=== PATIENT | female | born 1945 | race Hispanic/Latino ===

== ENCOUNTER 2018-10-24 02:31 | Emergency (ER) | payer OTHER ==
[2018-10-24 03:13] LABS: BILIRUBIN,URINE MODERATE (NEGATIVE); GLUCOSE, URINE (UA) NEGATIVE (NEGATIVE); KETONES,URINE 15 mg/dL (NEGATIVE); LEUKOCYTE ESTERASE ,URINE LARGE (NEGATIVE); NITRATE,URINE POSITIVE (NEGATIVE); OCCULT BLOOD,URINE LARGE (NEGATIVE); PROTEIN,URINE >=300 mg/dL (NEGATIVE)
[2018-10-24 03:14] LABS: APPEARANCE,URINE TURBID (CLEAR); COLOR,URINE RED (YELLOW)
[2018-10-24 03:28] LABS: RBC,URINE >100 /HPF (0-1)
[2018-10-24 03:29] LABS: BACTERIA,URINE Few /HPF (None Seen); SQUAMOUS EPITHELIAL CELL,UR 0-2 /HPF (0-2)
[2018-10-24] MEDS ORDERED: SULFAMETHOX-TMP DS 800/160 TAB ONE (04:03)
[2018-10-24] MEDS ORDERED: PHENAZOPYRIDINE HCL 200 MG TABLET ONE (04:03)
[2018-10-24] MEDS ORDERED: DICYCLOMINE HCL 20 MG TAB ONE (04:04)
== END 2018-10-24 04:38 | disposition home or self-care (01) ==
LOC: EDH 02:31
DX: N39.0 Urinary tract infection, site not specified (principal); I10 Essential (primary) hypertension; E11.9 Type 2 diabetes mellitus without complications; E78.5 Hyperlipidemia, unspecified; E07.9 Disorder of thyroid, unspecified; Z90.710 Acquired absence of both cervix and uterus
CPT/HCPCS: 81001; 87077; 87088; 87186

== ENCOUNTER 2023-03-11 13:42 | Emergency (ER) | payer OTHER ==
[~2023-03-11] VITALS: Ht 160 cm; Wt 56.7 kg
[2023-03-11 14:10] VITALS: BP 160/90; PULSE 78; RESP 16; O2SAT 98
[2023-03-11] MEDS ORDERED: ACET-2893 PO (14:48)
[2023-03-11] MEDS ORDERED: ACETAMINOPHEN 500 MG TABLET PO ONE (15:00)
== END 2023-03-11 16:06 | disposition home or self-care (01) ==
LOC: EDH 13:42
DX: M75.01 Adhesive capsulitis of right shoulder (principal); M19.011 Primary osteoarthritis, right shoulder; E03.9 Hypothyroidism, unspecified; E11.9 Type 2 diabetes mellitus without complications; E78.00 Pure hypercholesterolemia, unspecified; I10 Essential (primary) hypertension; Z90.710 Acquired absence of both cervix and uterus
CPT/HCPCS: 73030

== ENCOUNTER 2023-09-05 09:35 | Emergency (ER) | payer MEDICARE, OTHER ==
[~2023-09-05] VITALS: Ht 160 cm; Wt 56.7 kg
[~2023-09-05 09:35] MED LIST: ACET-2893 PO
[2023-09-05 09:59] LABS: BASOPHILS % (AUTO) 1.1 % (0.0-5.0); EOSINOPHILS # (AUTO) 0.44 K/uL (0.00-0.70); IMMATURE GRANULOCYTE ABSOLUTE 0.05 K/uL (0-1); LYMPHOCYTES # (AUTO) 2.3 K/uL (1.0-4.8); LYMPHOCYTES % (AUTO) 26.2 % (21.0-51.0); MEAN CORPUSCULAR HEMOGLOBIN 30.9 pg (27.0-33.0); MEAN CORPUSCULAR HGB CONC 34.2 g/dL (32.0-36.0); MEAN CORPUSCULAR VOLUME 90.5 fL (79-99); MONOCYTES # (AUTO) 0.8 K/uL (0.1-1.0); MONOCYTES % (AUTO) 9.2 % (3.0-13.0); NEUTROPHILS # (AUTO) 5.1 K/uL (1.8-7.7); NEUTROPHILS % (AUTO) 57.9 % (40.0-77.0); PLATELET COUNT (AUTO) 341 K/uL (130-400); RED BLOOD CELL COUNT(AUTO) 3.98 MIL/uL (4.00-5.50); RED CELL DISTRIBUTION WIDTH 12.6 % (11.0-15.5); WHITE BLOOD COUNT (AUTO) 8.8 K/uL (4.8-10.8)
[2023-09-05 10:09] LABS: INR <= 0.93 (0.85-1.15); PROTHROMBIN TIME 10.7 SEC (9.6-11.6)
[2023-09-05 10:14] LABS: CREATININE 0.8 mg/dL (0.5-1.5); POTASSIUM 3.5 mmol/L (3.5-5.1)
[2023-09-05 10:16] LABS: ALBUMIN 4.2 g/dL (3.5-5.0); BILIRUBIN,TOTAL 0.6 mg/dL (0.2-1.0); TOTAL PROTEIN, SERUM 7.1 g/dL (6.0-8.3)
[2023-09-05 10:24] LABS: B-TYPE NATRIURETIC PEPTIDE 85 pg/mL (0-100)
[2023-09-05 13:15] VITALS: BP 157/61; PULSE 87; RESP 18; O2SAT 98
== END 2023-09-05 13:30 | disposition home or self-care (01) ==
LOC: EDH 09:35
DX: R07.89 Other chest pain (principal); I49.9 Cardiac arrhythmia, unspecified; I10 Essential (primary) hypertension; E11.9 Type 2 diabetes mellitus without complications; E78.00 Pure hypercholesterolemia, unspecified; E03.9 Hypothyroidism, unspecified; Z90.710 Acquired absence of both cervix and uterus; Z98.890 Other specified postprocedural states
CPT/HCPCS: 36415; 71045; 80053; 83880; 84484; 85025; 85610; 93005

== ENCOUNTER → 2023-09-15 | Outpatient (CLI) | payer MEDICARE ==
[2023-09-15] MEDS: REGADENOSON 0.4 MG/5 ML PF SYG IVP ONE (11:58)
== END | disposition home or self-care (01) ==
LOC: SHCH 08:12
PROVIDERS: ATTEND Internal Medicine Cardiovascular Disease
DX: I49.3 Ventricular premature depolarization (principal); I10 Essential (primary) hypertension; E78.00 Pure hypercholesterolemia, unspecified; E11.9 Type 2 diabetes mellitus without complications; Z79.84 Long term (current) use of oral hypoglycemic drugs; Z79.899 Other long term (current) drug therapy
CPT/HCPCS: 78452; 96374; 93017; J2785; A9500 ×2

== ENCOUNTER → 2023-10-09 | Outpatient (CLI) | payer MEDICARE ==
[2023-10-09 12:16] LABS: CREATININE 0.7 mg/dL (0.5-1.5); MAGNESIUM 1.7 mg/dL (1.80-2.40); POTASSIUM 3.8 mmol/L (3.5-5.1)
== END | disposition home or self-care (01) ==
LOC: LAB 08:51
PROVIDERS: ATTEND Internal Medicine Cardiovascular Disease
DX: I49.3 Ventricular premature depolarization (principal)
CPT/HCPCS: 36415; 80048; 83735

== ENCOUNTER 2024-06-14 10:21 | Observation (INO) | payer MEDICARE ==
[2024-06-08 12:16] LABS: BASOPHILS # (AUTO) 0.08 K/uL (0.00-0.20); BASOPHILS % (AUTO) 0.8 % (0.0-5.0); EOSINOPHILS # (AUTO) 0.64 K/uL (0.00-0.70); EOSINOPHILS % (AUTO) 6.5 % (0.0-8.0); HEMATOCRIT 35.2 % (36-48); IMMATURE GRANULOCYTE ABSOLUTE 0.04 K/uL (0-1); LYMPHOCYTES # (AUTO) 1.5 K/uL (1.0-4.8); LYMPHOCYTES % (AUTO) 14.8 % (21.0-51.0); MEAN CORPUSCULAR HEMOGLOBIN 29.7 pg (27.0-33.0); MEAN CORPUSCULAR HGB CONC 34.4 g/dL (32.0-36.0); MEAN CORPUSCULAR VOLUME 86.5 fL (79-99); MONOCYTES # (AUTO) 0.8 K/uL (0.1-1.0); MONOCYTES % (AUTO) 7.8 % (3.0-13.0); NEUTROPHILS # (AUTO) 6.8 K/uL (1.8-7.7); NEUTROPHILS % (AUTO) 69.7 % (40.0-77.0); PLATELET COUNT (AUTO) 366 K/uL (130-400); RED BLOOD CELL COUNT(AUTO) 4.07 MIL/uL (4.00-5.50); RED CELL DISTRIBUTION WIDTH 11.9 % (11.0-15.5); WHITE BLOOD COUNT (AUTO) 9.8 K/uL (4.8-10.8)
[2024-06-08 12:28] LABS: INR 1.01 (0.85-1.15); PROTHROMBIN TIME 10.9 SEC (9.6-11.6)
[2024-06-08 12:30] LABS: PARTIAL THROMBOPLASTIN TIME 32.2 SEC (26.3-35.5)
[2024-06-08 12:31] VITALS: BP 174/87; PULSE 76; RESP 16; TEMP 97.9
[2024-06-08 12:35] LABS: CREATININE 0.6 mg/dL (0.5-1.0); POTASSIUM 3.8 mmol/L (3.5-5.1)
[2024-06-08 13:46] LABS: APPEARANCE,URINE CLEAR (CLEAR); BILIRUBIN,URINE NEGATIVE (NEGATIVE); COLOR,URINE LIGHT-YELLOW (YELLOW); GLUCOSE, URINE (UA) NEGATIVE (NEGATIVE); KETONES,URINE NEGATIVE (NEGATIVE); LEUKOCYTE ESTERASE ,URINE NEGATIVE Leu/uL (NEGATIVE); NITRATE,URINE NEGATIVE (NEGATIVE); OCCULT BLOOD,URINE NEGATIVE (NEGATIVE); PROTEIN,URINE NEGATIVE (NEGATIVE); UROBILINOGEN,URINE 0.2 mg/dL (0.2-1.0)
[2024-06-08 13:47] LABS: ADD UA MICROSCOPIC NO
--- NOTE | 2024-06-08 14:16 | NUR ---
PER DR. ALMONTE, FAXED ABNORMAL LAB ELECTROLYTE RESULTS TO PCP DR. SAIDA KEITH. ALSO CALLED PT 3 TIMES BUT COULDN'T HERE ANYTHING AFTER ANSWERING PHONE SO I CALLED DAUGHTER PHUONG ARMSTRONG AND INFORMED OF ABNORMAL LOW SODIUM AND CHLORIDE, INSTRUCTED TO VISIT PCP TODAY AND IF PCP NOT AVAILABLE TO VISIT ER TODAY TO ADDRESS ABNORMAL LABS. VERBALIZED UNDERSTANDING. STATES WILL TAKE HER MOTHER TO PCP AND IF NOT AVAILABLE WILL TAKE TO ER. Addendum: 06/13/24 at 0911 by JAVIER KUMARI RN RN pt was admitted to [facility] for electrolyte imbalance. pt d/c on 06/10. labs improved
--- NOTE | 2024-06-13 10:18 | NUR ---
NOTIFIED. DR ALMONTE INFORMED PT WAS ADMITTED TO HOSPITAL AND DISCHARGED. ELECTROLYTES WERE CORRECTED. OK TO PROCEED
[~2024-06-14] VITALS: Ht 160 cm; Wt 55.3 kg
[2024-06-14] VITALS (21 sets, daily range): BP systolic 102–149; BP diastolic 48–78; PULSE 70–96; RESP 15–19; TEMP 97.2–98.1; O2SAT 98
[~2024-06-14 10:21] MED LIST changes: -ACET-2893 PO; +AMLO-258 PO; +FAMO40TA7 PO; +KRIL1CAP19 PO; +LATA2.5D14 OP; +LEVO50 PO; +LOSA100T59 PO; +LOVA20TA3 PO; +METF-444 PO; +VITAMIN D PO
[2024-06-14] MEDS: 0.9%NACL 1000ML 1,000 ML IV ONE (11:15)
[2024-06-14] MEDS: ceFAZolin SODIUM 2 GM VIAL ONE (11:15)
--- NOTE | 2024-06-14 11:30 | NUR ---
ORTHO COORDINATOR: HOOSJR TOTAL SCORE: 15 TOTAL HIP PRE-OP ASSESSMENT COMPLETED ON PAPER.
[2024-06-14] MEDS ORDERED: LIDOCAINE PF 100MG/5ML (2%) SYRINGE 5ML ONE (11:51)
[2024-06-14] MEDS ORDERED: MIDAZOLAM HCL 1 MG/ML 2ML VIAL ONE (11:52)
[2024-06-14] MEDS ORDERED: rocuRONium bROMide 10MG/1ML 5ML VL ONE (11:52)
[2024-06-14] MEDS ORDERED: proPOFol 10 MG/ML 20ML VIAL IV ONE (11:52)
[2024-06-14] MEDS ORDERED: FENTanyl CITRate PF 50 MCG/1 ML 2ML VIAL ONE (11:53)
[2024-06-14] MEDS ORDERED: ROPivacaine 0.5% 5MG/ML 30ML ONE (12:46)
[2024-06-14] MEDS ORDERED: dexaMETHasone SOD PHOSPHATE 10MG/ML 1ML VIAL ONE (12:48)
[2024-06-14] MEDS ORDERED: TRANEXAMIC ACID 1000MG/10ML ONE (13:01)
[2024-06-14] MEDS ORDERED: ceFAZolin SODIUM 1 GM VIAL ONE (13:02)
[2024-06-14] MEDS: ceFAZolin SODIUM 3 GM VIAL IVPB ONE (13:06)
[2024-06-14] MEDS ORDERED: VANCOMYCIN 1G/250ML KIT 250 ML IV ONE (13:24)
[2024-06-14] MEDS ORDERED: GLYCOPYRROLATE 0.2 MG/ML 5 ML VIAL ONE (14:40)
[2024-06-14] MEDS ORDERED: NEOSTIGMINE METHYLSULFATE 1MG/ML IV ONE (14:41)
[2024-06-14] MEDS ORDERED: ALBUMIN (HUMAN) 5% 250 ML IV ONE (14:48)
[2024-06-14] MEDS ORDERED: PoTASSium chloRIDE 20MEQ ER 20 MEQ ERTAB PO PRN (15:30)
[2024-06-14] MEDS ORDERED: PoTASSium chl 10% ELIXIR 20MEQ 20 MEQ/15 ML UDCUP PO PRN (15:30)
[2024-06-14] MEDS ORDERED: CALCIUM CARB 500MG PO PRN (15:30)
[2024-06-14] MEDS ORDERED: FERROUS FUMARATE 324 MG TABLET PO PRN (15:30)
[2024-06-14] MEDS ORDERED: DiphenhydrAMINE HCL 50 MG/ML VIAL IVP PRN (15:30)
[2024-06-14] MEDS ORDERED: PoTASSium chloRIDE 20MEQ/100ML 100 ML IV PRN (15:30)
[2024-06-14] MEDS ORDERED: TEMAZepam 15 MG CAPSULE PO PRN (15:30)
--- NOTE | 2024-06-14 15:44 | OP ---
Operative Note: DATE OF PROCEDURE: 06/14/24 SURGEON: NASRIN ALMONTE MD BOX ATTACHER: [Rosemarie Lugo CFA] ANESTHESIA: [General anesthesia plus regional block] ANESTHESIOLOGIST/INGOT CAR OPERATOR: [Isrrael Pardo CRNA] PREOPERATIVE DIAGNOSIS: [Left hip osteoarthritis] POSTOPERATIVE DIAGNOSIS: [Same] IMPLANTS: [BIOMET TAPER LOCK COMPLETE FEMUR SIZE 6 X 132. ACETABULAR SHELL G7 SIZE 50, LINER SIZE D. ACETABULAR LINER G7 36 MM INTERNAL DIAMETER SIZE D. MODULAR HEAD COMPONENT SIZE 36 -6] PROCEDURE: [Left total hip arthroplasty] ESTIMATED BLOOD LOSS: [250 mL] INDICATIONS: [Patient is a 78-year-old female with history of significant pain to both hips, left more than right. The x-rays demonstrate the presence of severe arthrosis in both hips, left worse than right. The patient has failed conservative treatment and has been admitted for a total hip arthroplasty. P chiquis understood, risks, benefits and possible complications and the patient agreed signed the consent form] DESCRIPTION OF PROCEDURE: [After adequate general anesthesia was achieved and regional block obtained the patient was placed in the lateral decubitus with the use of the beanbag and hip holders. The left lower extremity was prepped and draped in the usual manner after x-rays taken with the C-arm were used to check the position of the pelvis. After anatomic landmarks were identified we proceeded to make an incision in the skin centered on the greater trochanter and with a slight curve posteriorly followed by dissection of the subcutaneous tissue with the use of the Bovie cautery. The tensor fascia gildardo and gluteus samantha fascia were then opened longitudinally and the fibers of the gluteus muscle were split manually entering into the deep space applying then the Harrison agnieszka retractor. Then with the use of a interosseous needle which was inserted in the greater trochanter we proceeded then to injected into the intramedullary canal 50 cc of saline solution mixed with 500 mg of vancomycin proceeded then to remove the interosseous needle. The posterior border of the gluteus medius was identified and elevated and a curved Hohmann retractor was inserted underneath to be able to expose the gluteus minimus and short external rotators. The interval between the piriformis and gluteus minimus was open with the use of the Bovie cautery and then the rotators and capsule were detached from their femoral neck insertion and retracted posteriorly entering into the hip joint. We then proceeded to dislocate the hip by flexing and then internally rotating it and after retractors were applied to the base of the femoral neck we proceeded to use the oscillating saw to cut the neck at this level. We then proceeded to use a box osteotome to enter the canal followed by insertion of the canal finder and then we proceeded to broach from size up to above-mentioned size. At this point we removed the last broach and packed the canal for hemostasis and after the retractors were removed we proceeded then to bring the hip into extension. Hohmann retractors were then applied anteriorly and posteriorly to the acetabulum removing then the labrum and foveal tissue. We proceeded to ream the acetabulum medializing it obtaining adequate cortico- cancellous bone. After irrigation was of the acetabulum was completed we proceeded then to apply the final component and x-rays were taken correcting the orientation of the acetabulum to its final position. Then a trial liner was inserted as well as a trial femur and then we proceeded to apply the trial femoral heads reducing the hip and taken x-rays until we identify the adequate size component and clinically by using the shuck test and measuring the leg length. Once we were satisfied we proceeded to remove the components from the femur and the trial liner after dislocating the hip and after copious irrigation of the joint was completed we then proceeded to apply the final liner followed by the insertion of the final femoral stem and femoral head. Once the hip was reduced, clinically the patient had normal length, negative shuck test and x- rays reveal adequate leg length compared to the opposite hip. The joint was then copiously irrigated with a diluted Betadine solution followed by irrigation with antibiotic solution with jet lavage once again and we then proceeded to take final x-rays and then to close the wound first with approximation of the capsule with #1 Vicryl simple stitches followed by approximation of the short external rotators with #2 PDS suture passing the sutures through the bone. The Charnley retractor was then removed and the gluteus samantha fascia was closed with a #1 Vicryl running stitch and the tensor fascia gildardo with #1 Vicryl crossed stitches. The subcutaneous tissue was closed with #2 Monocryl inverted stitches and the skin was closed with 3-0 Monocryl subcuticularly. A suction dressing was then applied to the incision and the drapes were then removed the patient being placed in the supine position. Leg length was checked and noted to be adequate. The patient was then transferred to a hospital bed and taken to recovery room for follow-up by anesthesia. There were no complications during the procedure.] NASRIN ALMONTE MD Jun 14, 2024 15:43
[2024-06-14] MEDS: MEPERIDINE-PF 25 MG/ML SYG ONE ×2 (16:18→16:26)
[2024-06-14] MEDS: ondanSETRON 4MG INJ IVP PRN (16:36)
[2024-06-14] MEDS: TRANEXAMIC ACID 1000MG/10ML ONE (16:43)
[2024-06-14] MEDS: ondanSETRON 4MG INJ ONE (16:53)
[2024-06-14] MEDS: INSULIN humuLIN R 100 UNIT/ML 3ML SQ SCH (17:15)
[2024-06-14] MEDS: VANCOMYCIN 500MG+NS 100ML 100 ML IV ONE (18:37)
[2024-06-14] MEDS: 0.9%NACL 1000ML 1,000 ML IV SCH (18:38)
[2024-06-14] MEDS: ASPIRIN 81 MG EC TAB PO SCH (20:59)
[2024-06-14] MEDS: FAMOTIDINE 20MG TAB PO SCH (20:59)
[2024-06-15] VITALS (7 sets, daily range): BP systolic 103–141; BP diastolic 50–74; PULSE 78–100; RESP 16–18; TEMP 98.1–98.5; O2SAT 98–99
[2024-06-15] MEDS: HYDROcodone/APAP 5/325 1 TAB TABLET PO PRN (02:45)
[2024-06-15 05:36] LABS: HEMATOCRIT 30.2 % (36-48); MEAN CORPUSCULAR HEMOGLOBIN 30.1 pg (27.0-33.0); MEAN CORPUSCULAR HGB CONC 33.4 g/dL (32.0-36.0); MEAN CORPUSCULAR VOLUME 89.9 fL (79-99); RED BLOOD CELL COUNT(AUTO) 3.36 MIL/uL (4.00-5.50); RED CELL DISTRIBUTION WIDTH 12.3 % (11.0-15.5); WHITE BLOOD COUNT (AUTO) 10.8 K/uL (4.8-10.8)
[2024-06-15 05:52] LABS: CREATININE 0.8 mg/dL (0.5-1.0); POTASSIUM 4.2 mmol/L (3.5-5.1)
--- NOTE | 2024-06-15 08:26 | PN ---
Ortho postop day one. This morning patient is awake alert and oriented. She is in no acute distress. Reports adequate pain control. Vital signs reviewed. Afebrile. Patient laboratory results reviewed. Noted to have a drop in hemoglobin and hematocrit as expected after total hip arthroplasty. Patient is asymptomatic. We will address per protocol as necessary. Voiding on her own without difficulty. Performing incentive spirometry as instructed. Dressing is intact. Gastrocnemius soft nontender, negative Homans. Operative findings discussed with the patient. Distal neurovascular exam intact. Yesterday therapy had the opportunity to stand her and walk in the room to the and is pending further physical therapy this morning. Anticipated discharge goal is SNF at [facility] Assessment: Status post left total hip arthroplasty. Asymptomatic acute postoperative blood loss anemia. Plan: Continue with Dr. Santana ROMEL protocol and discharge planning. Asymptomatic acute postoperative blood loss anemia addressed with the protocol as necessary. Vitals/Labs Vital Signs Date Time Temp Pulse Resp B/P (MAP) Pulse Ox O2 Delivery O2 Flow Rate FiO2 06/15/24 07:51 98.2 88 16 115/64 98 Room Air 06/15/24 05:01 2.0 24 Laboratory Tests 06/15/24 05:17 Medications Current Medications Cefazolin Sodium 2 gm STK-MED ONCE .ROUTE; Start 06/14/24 at 10:20; Stop 06/14/24 at 10:20; Status DC Sodium Chloride 1,000 ml @ As Directed STK-MED ONCE IV Last administered on 06/14/24at 11:15; Start 06/14/24 at 10:20; Stop 06/14/24 at 10:20; Status DC Lidocaine HCl 100 mg STK-MED ONCE .ROUTE; Start 06/14/24 at 11:51; Stop 06/14/24 at 11:52; Status DC Propofol 200 mg STK-MED ONCE IV; Start 06/14/24 at 11:52; Stop 06/14/24 at 11:52; Status DC Midazolam HCl 2 mg STK-MED ONCE .ROUTE; Start 06/14/24 at 11:52; Stop 06/14/24 at 11:52; Status DC Rocuronium [place] 50 mg STK-MED ONCE .ROUTE; Start 06/14/24 at 11:52; Stop 06/14/24 at 11:52; Status DC Fentanyl Citrate 100 mcg STK-MED ONCE .ROUTE; Start 06/14/24 at 11:53; Stop 06/14/24 at 11:53; Status DC Ropivacaine 150 mg STK-MED ONCE .ROUTE; Start 06/14/24 at 12:46; Stop 06/14/24 at 12:47; Status DC Dexamethasone Sodium Phosphate 10 mg STK-MED ONCE .ROUTE; Start 06/14/24 at 12:48; Stop 06/14/24 at 12:48; Status DC Tranexamic Acid 1,000 mg STK-MED ONCE .ROUTE; Start 06/14/24 at 13:01; Stop 06/14/24 at 13:02; Status DC Cefazolin Sodium 1 gm STK-MED ONCE .ROUTE; Start 06/14/24 at 13:02; Stop 06/14/24 at 13:02; Status DC Vancomycin HCl 250 ml @ As Directed STK-MED ONCE IV; Start 06/14/24 at 13:24; Stop 06/14/24 at 13:24; Status DC Vancomycin HCl 100 ml @ 100 mls/hr ONCE ONCE IV Last administered on 06/14/24at 18:37; Start 06/14/24 at 13:30; Stop 06/14/24 at 14:29; Status DC Cefazolin Sodium 3 gm STK-MED ONCE IVPB Last administered on 06/14/24at 13:06; Start 06/14/24 at 13:06; Stop 06/14/24 at 13:59; Status DC Cefazolin Sodium 2 gm STK-MED ONCE IVPB Last administered on 06/14/24at 12:46; Start 06/14/24 at 12:46; Stop 06/14/24 at 13:59; Status DC Tranexamic Acid 1,000 mg STK-MED ONCE IV Last administered on 06/14/24at 13:01; Start 06/14/24 at 13:01; Stop 06/14/24 at 13:59; Status DC Glycopyrrolate 1 mg STK-MED ONCE .ROUTE; Start 06/14/24 at 14:40; Stop 06/14/24 at 14:41; Status DC Neostigmine Methylsulfate 10 mg STK-MED ONCE IV; Start 06/14/24 at 14:41; Stop 06/14/24 at 14:41; Status DC Albumin Human 250 ml @ As Directed STK-MED ONCE IV; Start 06/14/24 at 14:48; Stop 06/14/24 at 14:48; Status DC Sodium Chloride 1,000 ml @ 100 mls/hr Q10H IV Last administered on 06/14/24at 18:38; Start 06/14/24 at 15:30; Stop 06/15/24 at 15:29 Polyethylene Glycol 17 gm DAILY PO; Start 06/15/24 at 09:00; Stop 07/15/24 at 08:59 Bisacodyl 10 mg DAILY PRN RC; Start 06/17/24 at 15:30; Stop 07/17/24 at 15:29 Ketorolac Tromethamine 15 mg Q6H PRN IV; Start 06/14/24 at 15:30; Stop 06/19/24 at 15:29 Famotidine 20 mg BID PO Last administered on 06/14/24at 20:59; Start 06/14/24 at 21:00; Stop 07/14/24 at 20:59 Ferrous Fumarate 324 mg DAILY PRN PO; Start 06/14/24 at 15:30; Stop 07/14/24 at 15:29 Temazepam 15 mg HS PRN PO; Start 06/14/24 at 15:30; Stop 07/14/24 at 15:29 Calcium Carbonate 500 mg Q12H PRN PO; Start 06/14/24 at 15:30; Stop 07/14/24 at 15:29 Diphenhydramine HCl 25 mg Q6H PRN IVP; Start 06/14/24 at 15:30; Stop 07/14/24 at 15:29 Insulin Human Regular INSULIN SLIDING SCAL... ACHS SQ; Start 06/14/24 at 16:30; Stop 07/14/24 at 16:29 Ondansetron HCl 4 mg Q6H PRN IVP Last administered on 06/14/24at 16:36; Start 06/14/24 at 15:30; Stop 07/14/24 at 15:29 Potassium Chloride 100 ml @ 100 mls/hr AD PRN IV; Start 06/14/24 at 15:30; Stop 07/14/24 at 15:29 Potassium Chloride 20 meq AD PRN PO; Start 06/14/24 at 15:30; Stop 07/14/24 at 15:29 Potassium Chloride 20 meq AD PRN PO; Start 06/14/24 at 15:30; Stop 07/14/24 at 15:29 Acetaminophen/ Hydrocodone Bitart Q4H PRN PO Last administered on 06/15/24at 02:45; Start 06/14/24 at 15:30; Stop 06/19/24 at 15:29 Aspirin 81 mg BID PO Last administered on 06/14/24at 20:59; Start 06/14/24 at 21:00; Stop 07/14/24 at 20:59 Meperidine HCl 25 mg STK-MED ONCE .ROUTE Last administered on 06/14/24at 16:18; Start 06/14/24 at 16:10; Stop 06/14/24 at 16:11; Status DC Tranexamic Acid 1,000 mg STK-MED ONCE .ROUTE Last administered on 06/14/24at 16:43; Start 06/14/24 at 16:10; Stop 06/14/24 at 16:11; Status DC Meperidine HCl 25 mg STK-MED ONCE .ROUTE Last administered on 06/14/24at 16:26; Start 06/14/24 at 16:22; Stop 06/14/24 at 16:22; Status DC Ondansetron HCl 4 mg STK-MED ONCE .ROUTE Last administered on 06/14/24at 16:53; Start 06/14/24 at 16:33; Stop 06/14/24 at 16:33; Status DC OPAL THOMAS NP Jun 15, 2024 08:26
[2024-06-15] MEDS: polyETHYLene GLYCol 3350 17 GM POWD.PACK PO SCH (08:38)
--- NOTE | 2024-06-15 09:24 | HMCIMG ---
HIP UNILAT 4VW LEFT REASON: ORIF LEFT ROMEL, SX COMPARISON: None TECHNIQUE: 7 surgical spot views obtained documenting left total hip joint prosthesis placement. Fluoroscopy time was 40 seconds. IMPRESSION: 1. Documentation of left total hip joint prosthesis placement.
--- NOTE | 2024-06-15 12:45 | NUR ---
ORTHO COORDINATOR: TEACHING REGARDING DVT AND PNEUMONIA PREVENTION, PAIN EXPECTATIONS AND PAIN MANAGEMENT. PATIENT UP TO CHAIR. VISITORS AT BEDSIDE. SCD SLEEVES AND MACHINE IN ROOM. INCENTIVE SPIROMETER ON TRAY TABLE. PATIENT RETURN DEMONSTRATED PROPER USE OF INCENTIVE SPIROMETER AND FOOT FLEXION AND EXTENSION. PATIENT REPORTS PHYSICAL THERAPY WENT WELL TODAY AND PAIN IS MANAGED. PATIENT WILL NEED WALKER AND 3-1 COMMODE AND IS REQUESTING REHAB. REVIEWED IMPORTANCE OF CONTINUING PREMEDICATION IN REHAB AND TO CONTINUE AT HOME WITH HIGH PERIODS OF ACTIVITY. ENCOURAGED CONTINUED USE OF INCENTIVE SPIROMETRY AND FOOT FLEXION AND EXTENSION WHILE AT REHAB. PATIENT VERBALIZED UNDERSTANDING. NO ADDITIONAL QUESTIONS OR CONCERNS AT THIS TIME.
--- NOTE | 2024-06-15 13:00 | NUR ---
HEMET [facility] CM DC ASSEMBLER SHOW MOTOR MET WITH PT THIS MORNING. PATIENT IS INDEPENDENT PRIOR TO SURGERY, LIVES AT HOME WITH SPOUSE, DAUGHTER LIVES CLOSE BY. DENIES ANY EQUIPMENT/SERVICES. SPOUSE AND DAUGHTER ABLE TO ASSIST WITH TRANSPORTATION AND NEEDS NECESSARY. DISCUSSED MD RECOMMENDATIONS FOR HOME W/HH AND DME WILL NEED STANDARD WALKER. PT REQUESTING SNF PLACEMENT FOR REHAB. CONSENT SIGNED [facility] FOR [facility]. DCP SNF ONCE APPROVED. CM DC ASSEMBLER SHOW MOTOR SENT ORDER, CLINICALS, PT, PASRR TO [facility] VIA SECURE FAX AND EMAIL, CONFIRMATION RECEIVED. CM SPOKE TO [facility], AWARE OF NEW REFERRAL, CONFIRMED RECEIVED PACKET SENT, VISITED PATIENT. PT PENDING APPROVAL AT THIS TIME, REP MADE AWARE PT WILL NEED FACILITY VAN FOR TRANSFER ONCE PT READY TO DC. PRIMARY NURSE MARIELA MADE AWARE. DR ALMONTE UPDATED. CM TO CONTINUE TO FOLLOW UP. Addendum: 06/15/24 at 1303 by ARLIN EARLY LVN CM Amended: Links added.
--- NOTE | 2024-06-15 16:20 | NUR ---
MAULIK NOTE: EDWIGE HUNTLEY APPROVAL CM SPOKE TO BEBETO Nuñez/EDWIGE OF [place], PT HAS APPROVAL, REP AWARE PT WILL NEED FACILITY VAN FOR TRANSFER. PRIMARY NURSE MARIELA MADE AWARE. DR ALMONTE UPDATED. CM TO CONTINUE TO FOLLOW UP. Addendum: 06/15/24 at 1622 by ARLIN EARLY LVN CM Amended: Links added.
[2024-06-16] VITALS (8 sets, daily range): BP systolic 112–146; BP diastolic 61–73; PULSE 76–88; RESP 16–18; TEMP 97.9–98.5; O2SAT 99
[2024-06-16] MEDS: ketOROlac 15MG/ML VIAL (15MG/ML) IV PRN (00:45)
--- NOTE | 2024-06-16 16:58 | PN ---
Postop day 2., status post left total hip arthroplasty. Vital signs stable. The patient is afebrile. She is doing well with physical therapy and her pain level has decreased significantly. She is awake, alert and oriented. She is in no distress. The dressing is intact she has mild thigh edema, distal neurovascular exam is normal. Assessment: Status post left total hip arthroplasty. Plan: The patient will be transferred tomorrow to shelter aspirate her request. Continue with physical therapy and rehabilitation. Vitals/Labs Vital Signs Date Time Temp Pulse Resp B/P (MAP) Pulse Ox O2 Delivery O2 Flow Rate FiO2 06/16/24 12:00 98.1 85 16 113/66 92 Room Air 06/16/24 08:45 0 21 Medications Current Medications Cefazolin Sodium 2 gm STK-MED ONCE .ROUTE; Start 06/14/24 at 10:20; Stop 06/14/24 at 10:20; Status DC Sodium Chloride 1,000 ml @ As Directed STK-MED ONCE IV Last administered on 06/14/24at 11:15; Start 06/14/24 at 10:20; Stop 06/14/24 at 10:20; Status DC Lidocaine HCl 100 mg STK-MED ONCE .ROUTE; Start 06/14/24 at 11:51; Stop 07/26 at 11:52; Status DC Propofol 200 mg STK-MED ONCE IV; Start 06/14/24 at 11:52; Stop 06/14/24 at 11:52; Status DC Midazolam HCl 2 mg STK-MED ONCE .ROUTE; Start 06/14/24 at 11:52; Stop 06/14/24 at 11:52; Status DC Rocuronium [place] 50 mg STK-MED ONCE .ROUTE; Start 06/14/24 at 11:52; Stop 06/14/24 at 11:52; Status DC Fentanyl Citrate 100 mcg STK-MED ONCE .ROUTE; Start 06/14/24 at 11:53; Stop 06/14/24 at 11:53; Status DC Ropivacaine 150 mg STK-MED ONCE .ROUTE; Start 06/14/24 at 12:46; Stop 06/14/24 at 12:47; Status DC Dexamethasone Sodium Phosphate 10 mg STK-MED ONCE .ROUTE; Start 06/14/24 at 12:48; Stop 06/14/24 at 12:48; Status DC Tranexamic Acid 1,000 mg STK-MED ONCE .ROUTE; Start 06/14/24 at 13:01; Stop 06/14/24 at 13:02; Status DC Cefazolin Sodium 1 gm STK-MED ONCE .ROUTE; Start 06/14/24 at 13:02; Stop 06/14/24 at 13:02; Status DC Vancomycin HCl 250 ml @ As Directed STK-MED ONCE IV; Start 06/14/24 at 13:24; Stop 06/14/24 at 13:24; Status DC Vancomycin HCl 100 ml @ 100 mls/hr ONCE ONCE IV Last administered on 06/14/24at 18:37; Start 06/14/24 at 13:30; Stop 06/14/24 at 14:29; Status DC Cefazolin Sodium 3 gm STK-MED ONCE IVPB Last administered on 06/14/24at 13:06; Start 06/14/24 at 13:06; Stop 06/14/24 at 13:59; Status DC Cefazolin Sodium 2 gm STK-MED ONCE IVPB Last administered on 06/14/24at 12:46; Start 06/14/24 at 12:46; Stop 06/14/24 at 13:59; Status DC Tranexamic Acid 1,000 mg STK-MED ONCE IV Last administered on 06/14/24at 13:01; Start 06/14/24 at 13:01; Stop 06/14/24 at 13:59; Status DC Glycopyrrolate 1 mg STK-MED ONCE .ROUTE; Start 06/14/24 at 14:40; Stop 06/14/24 at 14:41; Status DC Neostigmine Methylsulfate 10 mg STK-MED ONCE IV; Start 06/14/24 at 14:41; Stop 06/14/24 at 14:41; Status DC Albumin Human 250 ml @ As Directed STK-MED ONCE IV; Start 06/14/24 at 14:48; Stop 06/14/24 at 14:48; Status DC Sodium Chloride 1,000 ml @ 100 mls/hr Q10H IV Last administered on 06/14/24at 18:38; Start 06/14/24 at 15:30; Stop 06/15/24 at 15:29; Status DC Polyethylene Glycol 17 gm DAILY PO Last administered on 06/16/24at 08:37; Start 06/15/24 at 09:00; Stop 07/15/24 at 08:59 Bisacodyl 10 mg DAILY PRN RC; Start 06/17/24 at 15:30; Stop 07/17/24 at 15:29 Ketorolac Tromethamine 15 mg Q6H PRN IV Last administered on 06/16/24at 00:45; Start 06/14/24 at 15:30; Stop 06/19/24 at 15:29 Famotidine 20 mg BID PO Last administered on 06/16/24at 08:37; Start 06/14/24 at 21:00; Stop 07/14/24 at 20:59 Ferrous Fumarate 324 mg DAILY PRN PO; Start 06/14/24 at 15:30; Stop 07/14/24 at 15:29 Temazepam 15 mg HS PRN PO; Start 06/14/24 at 15:30; Stop 07/14/24 at 15:29 Calcium Carbonate 500 mg Q12H PRN PO; Start 06/14/24 at 15:30; Stop 07/14/24 at 15:29 Diphenhydramine HCl 25 mg Q6H PRN IVP; Start 06/14/24 at 15:30; Stop 07/14/24 at 15:29 Insulin Human Regular INSULIN SLIDING SCAL... ACHS SQ; Start 06/14/24 at 16:30; Stop 07/14/24 at 16:29 Ondansetron HCl 4 mg Q6H PRN IVP Last administered on 06/14/24at 16:36; Start 06/14/24 at 15:30; Stop 07/14/24 at 15:29 Potassium Chloride 100 ml @ 100 mls/hr AD PRN IV; Start 06/14/24 at 15:30; Stop 07/14/24 at 15:29 Potassium Chloride 20 meq AD PRN PO; Start 06/14/24 at 15:30; Stop 07/14/24 at 15:29 Potassium Chloride 20 meq AD PRN PO; Start 06/14/24 at 15:30; Stop 07/14/24 at 15:29 Acetaminophen/ Hydrocodone Bitart Q4H PRN PO Last administered on 06/16/24at 14:33; Start 06/14/24 at 15:30; Stop 11/17/24 at 15:29 Aspirin 81 mg BID PO Last administered on 06/16/24at 08:37; Start 06/14/24 at 21:00; Stop 07/14/24 at 20:59 Meperidine HCl 25 mg STK-MED ONCE .ROUTE Last administered on 06/14/24at 16:18; Start 06/14/24 at 16:10; Stop 06/14/24 at 16:11; Status DC Tranexamic Acid 1,000 mg STK-MED ONCE .ROUTE Last administered on 06/14/24at 16:43; Start 06/14/24 at 16:10; Stop 06/14/24 at 16:11; Status DC Meperidine HCl 25 mg STK-MED ONCE .ROUTE Last administered on 06/14/24at 16:26; Start 06/14/24 at 16:22; Stop 06/14/24 at 16:22; Status DC Ondansetron HCl 4 mg STK-MED ONCE .ROUTE Last administered on 06/14/24at 16:53; Start 06/14/24 at 16:33; Stop 06/14/24 at 16:33; Status DC NASRIN ALMONTE MD Jun 16, 2024 16:58
--- NOTE | 2024-06-16 18:16 | NUR ---
CM NOTE: WO MAULIK RECEIVED RESPONSE FROM [facility]ES TOMORROW AM TO [facility]. PRIMARY NURSE MARIELA MADE AWARE. BEBETO Nuñez/EDWIGE HUNTLEY UPDATED, WILL HAVE [facility] READY IN AM. CM TO CONTINUE TO FOLLOW UP.
[2024-06-17] VITALS: BP 146/67; PULSE 86; RESP 17; TEMP 98.4
[2024-06-17 04:00] VITALS: BP 140/85; PULSE 89; RESP 16; TEMP 98.4
[2024-06-17] MEDS ORDERED: AEC81 PO (07:27)
[2024-06-17] MEDS ORDERED: HYDR-4060 PO (07:27)
--- NOTE | 2024-06-17 07:34 | DS ---
DISCHARGE SUMMARY [ [Date of admission: 06/14/24 Date of discharge:06/17/24 Final diagnosis: Let hip osteoarthritis Surgical procedures: Left total hip arthroplasty on 06/14/24 Summary of History and Physical: The patient is a 78 year-old female with history of severe arthrosis to the left hip that has been present for several years and has been treated conservatively with no longer adequate response to treatment. The patient is being admitted for total hip arthroplasty. Previous medical history: NIDDM, HTN, Hyperlipidemia, hypothyroidism Previous surgical history: ABIDA, Bunny. breast bxs,partial thyroidectomy Family history: DM, COPD, HTN, Cancer. Coronary arthery disease. Social history: Negative for use of tobacco or alcohol. Allergies: NKDA. Review of system: Negative on admission Hospital course: The patient was admitted and taken to the operating room for a total hip arthroplasty, procedure that went uneventful. Postoperatively the patient remained hemodynamically stable and afebrile. The patient received antibiotic and anticoagulation prophylaxis as per protocol. The patient was evaluated by physical therapy and started rehabilitation treatment with ambulation with the use of walker, weightbearing as tolerated, posterior hip precautions, range of motion exercises and bed transfers. The patient was also evaluated by case management and arrangements were made for discharge . The patient tolerated diet well. On postop day #2 all the arrangements were completed. The dressing remained clean. oN POD 3 had significant problem with constipation that responded to Mg Citrate.The patient was dismissed on POD #3. Condition on discharge: Good Disposition: The patient will be dismissed to a nursing facility. Follow-up will be done at the office in 3 weeks. The patient is to continue with physical therapy and rehabilitation at facility and be ambulatory with the use of a walker, weightbearing as tolerated and continue with hip precautions. Continue taking pain medication as instructed as well as anticoagulation prophylaxis. Continue with home medications also as instructed and continue with pre admissio n diet.] NASRIN ALMONTE MD ] NASRIN ALMONTE MD Jun 17, 2024 07:34
[2024-06-17 07:55] VITALS: O2SAT 99
[2024-06-17 08:00] VITALS: BP 135/66; PULSE 75; RESP 18; TEMP 98.4
[2024-06-17] MEDS: MAGNESIUM CITRATE 296 ML SOLUTION PO STA (09:14)
--- NOTE | 2024-06-17 15:21 | NUR ---
DC INSTRUCTION PROVIDED TO PATIENT . PEDAL PULSES PRESENT , DENIES ANY NUMBNESS , DRESSING CLEAN AND DRY . REPORT WAS GIVEN TO [facility] . [facility] HAND TRANSFERRED PATIENT . PATIENT HAD BM TODAY POST LAXATIVE
[2024-06-17] MEDS ORDERED: BisaCODYL 10 MG SUPP.RECT RC PRN (15:30)
== END 2024-06-17 14:30 ==
LOC: DAH 10:21 → DAHIP 10:22 → DAH 10:22 → 4CH 17:15
PROVIDERS: ADMIT Orthopaedic Surgery; ATTEND Orthopaedic Surgery
DX: M16.12 Unilateral primary osteoarthritis, left hip (principal); G89.18 Other acute postprocedural pain; D62 Acute posthemorrhagic anemia; E03.9 Hypothyroidism, unspecified; E11.9 Type 2 diabetes mellitus without complications; E78.5 Hyperlipidemia, unspecified; I10 Essential (primary) hypertension; K59.00 Constipation, unspecified; I25.10 Atherosclerotic heart disease of native coronary artery without angina pectoris; Z79.84 Long term (current) use of oral hypoglycemic drugs; Z79.899 Other long term (current) drug therapy
CPT/HCPCS: 80048 ×2; 85025; 85610; 85730; 87086; 81003; 36415 ×2; 87641; 64447; 27130; 96365; 82948 ×13; 88311; 88304; 73503; 97161; 97530 ×5; 85027; 97116 ×5; 96375; G0378 ×66; A4600; A4223 ×2; A4663; P9045; J0690 ×4; J3010; J3490 ×5; J1100; J7030; J2003; J2250; J2704; J2405; J2710; J3370 ×2; J2175 ×2; J2795; A4649 ×3; A9272; A4930 ×2; C1776; A4215; A4222; A4221; A4216; J1885

== ENCOUNTER 2024-11-17 06:20 | Observation (INO) | payer MEDICARE ==
[2024-11-11 11:31] LABS: BASOPHILS % (AUTO) 1.3 % (0.0-5.0); EOSINOPHILS # (AUTO) 0.35 K/uL (0.00-0.70); EOSINOPHILS % (AUTO) 4.5 % (0.0-8.0); HEMATOCRIT 36.3 % (36-48); IMMATURE GRANULOCYTE ABSOLUTE 0.03 K/uL (0-1); LYMPHOCYTES # (AUTO) 1.3 K/uL (1.0-4.8); LYMPHOCYTES % (AUTO) 16.6 % (21.0-51.0); MEAN CORPUSCULAR HEMOGLOBIN 28.7 pg (27.0-33.0); MEAN CORPUSCULAR HGB CONC 32.2 g/dL (32.0-36.0); MEAN CORPUSCULAR VOLUME 89.2 fL (79-99); MONOCYTES # (AUTO) 0.5 K/uL (0.1-1.0); MONOCYTES % (AUTO) 6.9 % (3.0-13.0); NEUTROPHILS # (AUTO) 5.5 K/uL (1.8-7.7); NEUTROPHILS % (AUTO) 70.3 % (40.0-77.0); PLATELET COUNT (AUTO) 317 K/uL (130-400); RED BLOOD CELL COUNT(AUTO) 4.07 MIL/uL (4.00-5.50); RED CELL DISTRIBUTION WIDTH 15.3 % (11.0-15.5); WHITE BLOOD COUNT (AUTO) 7.8 K/uL (4.8-10.8)
[2024-11-11 11:43] LABS: CREATININE 0.7 mg/dL (0.5-1.0); POTASSIUM 4.5 mmol/L (3.5-5.1)
[2024-11-11 11:48] LABS: APPEARANCE,URINE CLEAR (CLEAR); BILIRUBIN,URINE NEGATIVE (NEGATIVE); COLOR,URINE LIGHT-YELLOW (YELLOW); GLUCOSE, URINE (UA) NEGATIVE (NEGATIVE); KETONES,URINE NEGATIVE (NEGATIVE); LEUKOCYTE ESTERASE ,URINE NEGATIVE Leu/uL (NEGATIVE); NITRATE,URINE NEGATIVE (NEGATIVE); OCCULT BLOOD,URINE NEGATIVE (NEGATIVE); PROTEIN,URINE NEGATIVE (NEGATIVE); UROBILINOGEN,URINE 0.2 mg/dL (0.2-1.0)
[2024-11-11 11:51] VITALS: BP 169/89; PULSE 69; RESP 18; TEMP 97.6
[2024-11-11 11:52] LABS: ADD UA MICROSCOPIC NO
[2024-11-11 12:08] LABS: INR 1.01 (0.85-1.15); PROTHROMBIN TIME 10.7 SEC (9.6-11.6)
[2024-11-11 12:09] LABS: PARTIAL THROMBOPLASTIN TIME 31.3 SEC (26.3-35.5)
--- NOTE | 2024-11-12 11:32 | EKG ---
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 Low voltage QRS Compared to ECG 06/08/2024 19:46:55 Low QRS voltage now present Electronically Signed On 11-12-2024 14:35:59 CDT by Yaneth Canales Please click the below link to view image of tracing.
--- NOTE | 2024-11-16 09:10 | NUR ---
RE: EKG REPORTED EKG RESULTS TO DR MONROE, NO NEW ORDERS RECEIVED.
[2024-11-17] VITALS (27 sets, daily range): BP systolic 103–138; BP diastolic 50–77; PULSE 53–100; RESP 12–19; TEMP 96.8–98.1; O2SAT 98
[~2024-11-17] VITALS: Ht 160 cm; Wt 54.9 kg
[~2024-11-17 06:20] MED LIST changes: +AMLO-257 PO; -AMLO-258 PO; +FERR-82 PO; -KRIL1CAP19 PO; +NAPR220T57 PO; +VITAMIN B12 SL; -VITAMIN D PO; +[UNRECOGNIZED DRUG - CODE] PO
[2024-11-17] MEDS ORDERED: VANCOMYCIN 500MG+NS 100ML 100 ML IV ONE (06:31)
[2024-11-17] MEDS ORDERED: ROPivacaine 0.5% 5MG/ML 30ML ONE (07:08)
[2024-11-17] MEDS ORDERED: ketaMINE 50MG/ML SYRINGE 50 MG/ML DISP.SYRIN ONE (07:09)
[2024-11-17] MEDS ORDERED: LIDOCAINE PF 100MG/5ML (2%) SYRINGE 5ML ONE (07:12)
[2024-11-17] MEDS ORDERED: proPOFol 10 MG/ML 20ML VIAL IV ONE (07:13)
[2024-11-17] MEDS ORDERED: rocuRONium bROMide 10MG/1ML 5ML VL ONE (07:13)
[2024-11-17] MEDS ORDERED: FENTanyl CITRate PF 50 MCG/1 ML 2ML VIAL ONE (07:13)
[2024-11-17] MEDS: 0.9%NACL 1000ML 1,000 ML IV ONE (07:22)
[2024-11-17] MEDS: ceFAZolin SODIUM 2 GM VIAL ONE (07:22)
[2024-11-17] MEDS ORDERED: dexaMETHasone SOD PHOSPHATE 10MG/ML 1ML VIAL ONE (08:08)
[2024-11-17] MEDS ORDERED: ondanSETRON 4MG INJ ONE (08:08)
[2024-11-17] MEDS: TRANEXAMIC ACID 1000MG/10ML ONE ×2 (08:10→10:47)
[2024-11-17] MEDS: ceFAZolin SODIUM 1 GM VIAL ONE (08:51)
[2024-11-17] MEDS ORDERED: GLYCOPYRROLATE 0.2 MG/ML 5 ML VIAL ONE (09:11)
[2024-11-17] MEDS ORDERED: phenylEPHRINE HCL 10 MG/ML 1ML VIAL IV ONE (09:12)
[2024-11-17] MEDS ORDERED: NEOSTIGMINE METHYLSULFATE 1MG/ML IV ONE (09:12)
--- NOTE | 2024-11-17 10:28 | OP ---
Operative Note: DATE OF PROCEDURE: 11/17/24 SURGEON: NASRIN ALMONTE MD EXCAVATION LABORER: [Gabe Del Cid CFA] ANESTHESIA: [General anesthesia plus regional block] ANESTHESIOLOGIST/ETL DATA ARCHITECT: [Nikia Mueller CRNA] PREOPERATIVE DIAGNOSIS: [Right hip osteoarthritis] POSTOPERATIVE DIAGNOSIS: [Right hip osteoarthritis] IMPLANTS: [Biomet. Acetabulum G7 size 50 mm. Acetabular liner high wall 36 mm. Femoral stem tapered lock size six high offset. Femoral head size 36 mm - 6] PROCEDURE: [Right total hip arthroplasty] ESTIMATED BLOOD LOSS: [100 mL] INDICATIONS: [The patient is an 79-year-old female with a history of osteoarthritis to both of her hips, status post left total hip arthroplasty last year and now she is coming for right total hip arthroplasty because of continuation of symptoms and failure of conservative treatment. The patient understood the procedure, risks, benefits and possible complications and agreed signed the consent form] DESCRIPTION OF PROCEDURE: [After adequate general anesthesia was achieved and regional block obtained the patient was placed in the lateral decubitus with the use of the beanbag and hip holders. The left lower extremity was prepped and draped in the usual manner after x-rays taken with the C-arm were used to check the position of the pelvis. After anatomic landmarks were identified we proceeded to make an incision in the skin centered on the greater trochanter and with a slight curve posteriorly followed by dissection of the subcutaneous tiss ue with the use of the Bovie cautery. The tensor fascia gildardo and gluteus samantha fascia were then opened longitudinally and the fibers of the gluteus muscle were split manually entering into the deep space applying then the Charnley retractor. A bone infusion needle was then inserted in the lateral aspect of the greater trochanter and through this needle we injected into the bone a solution of 50 mL of normal saline with 500 mg of vancomycin. The bone needle was then removed. The posterior border of the gluteus medius was identified and elevated and a curved Hohmann retractor was inserted underneath to be able to expose the gluteus minimus and short external rotators. The interval between the piriformis and gluteus minimus was open with the use of the Bovie cautery and then the rotators and capsule were detached from their femoral neck insertion and retracted posteriorly entering into the hip joint. At this point a marker was applied in the iliac bone just superior to the acetabulum with the use of drill guide to be able to check the offset and the length of the extremity at the level of the trochanter. Once the marker was made this was passed to the back table. We then proceeded to dislocate the hip by flexing the hip and then internally rotating it and after retractors were applied to the base of the femoral neck we proceeded to use the oscillating saw to cut the neck at this level. We then proceeded to use a box osteotome to enter the canal followed by insertion of the canal finder and then we proceeded to broach from size up to above-mentioned size. At this point we removed the last broach and packed the canal for hemostasis and after the retractors were removed we proceeded then to bring the hip into extension. Hohmann retractors were then applied anteriorly and posteriorly to the acetabulum removing then the labrum and foveal tissue. We proceeded to ream the acetabulum medializing it obtaining adequate cortico-cancellous bone. After irrigation was of the acetabulum was completed we proceeded then to apply the final component and x- rays were taken correcting the orientation of the acetabulum to its final position. Then a trial liner was inserted as well as a trial femur and then we proceeded to apply the trial femoral heads reducing the hip and taken x-rays until we identify the adequate size component using the marker to check the length and offset as well as clinically using the shuck test and measuring the leg length. Once we were satisfied we proceeded to remove the components from the femur and the trial liner after dislocating the hip and after copious irrigation of the joint was completed we then proceeded to apply the final liner followed by the insertion of the final femoral stem femoral head. Once the hip was reduced we used a marker once again and the leg length and offset were normal and clinically the patient had normal length, negative shuck test and x-rays reveal adequate leg length compared to the opposite hip. The joint was then copiously irrigated with a diluted Betadine solution followed by irrigation with antibiotic solution with jet lavage once again and we then proceeded to take final x-rays and then to close the wound first with approximation of the capsule with #1 Vicryl simple stitches followed by approximation of the short external rotators with #2 PDS suture passing the sutures through the bone. The Charnley retractor was then removed and the gluteus samantha fascia was closed with a #1 Vicryl running stitch and the tensor fascia gildardo with #1 Vicryl crossed stitches. The subcutaneous tissue was closed with #2 Monocryl inverted stitches and the skin was closed with 3-0 Monocryl subcuticularly. A suction dressing was then applied to the incision and the drapes were then removed the patient being placed in the supine position. Leg length was checked and noted to be adequate. The patient was then transferred to a hospital bed and taken to recovery room for follow-up by anesthesia. There were no complications during the procedure.] NASRIN ALMONTE MD Nov 17, 2024 10:28
[2024-11-17] MEDS: acetaMINOPHEN 500 MG TABLET PO SCH (10:30)
[2024-11-17] MEDS ORDERED: FERROUS FUMARATE 324 MG TABLET PO PRN (10:30)
[2024-11-17] MEDS ORDERED: PoTASSium chloRIDE 20MEQ/100ML 100 ML IV PRN (10:30)
[2024-11-17] MEDS ORDERED: CALCIUM CARB 500MG PO PRN (10:30)
[2024-11-17] MEDS ORDERED: PoTASSium chloRIDE 20MEQ ER 20 MEQ ERTAB PO PRN (10:30)
[2024-11-17] MEDS ORDERED: PoTASSium chl 10% ELIXIR 20MEQ 20 MEQ/15 ML UDCUP PO PRN (10:30)
[2024-11-17] MEDS ORDERED: ondanSETRON 4MG INJ IVP PRN (10:30)
[2024-11-17] MEDS ORDERED: OXYcodONE HCL 5 MG TAB PO PRN ×2 (10:30)
[2024-11-17] MEDS: hydroMORPHone 1 MG INJ ONE (11:08)
[2024-11-17] MEDS: INSULIN humuLIN R 100 UNIT/ML 3ML SQ SCH (11:30)
[2024-11-17] MEDS: acetaMINOPHEN 100 ML ONE (12:17)
[2024-11-17] MEDS: FAMOTIDINE 20MG VIAL IV ONE (12:17)
[2024-11-17] MEDS: ketOROlac 15MG/ML VIAL (15MG/ML) IV PRN (13:16)
[2024-11-17] MEDS: 0.9%NACL 1000ML 1,000 ML IV SCH (13:24)
--- NOTE | 2024-11-17 13:28 | HMCIMG ---
HIP UNILAT 4VW RIGHT REASON: ORIF RIGHT ROMEL, SX. COMPARISON: None TECHNIQUE: Fluoroscopic images of right hip were obtained. FINDINGS: Please see procedure report by referring physician. IMPRESSION: Intraoperative films.
--- NOTE | 2024-11-17 15:30 | NUR ---
ORTHO COORDINATOR: TEACHING REGARDING DVT AND PNEUMONIA PREVENTION, PAIN EXPECTATIONS AND PAIN MANAGEMENT. PATIENT IN BED. B SCD'S IN PLACE AND FUNCTIONING. INCENTIVE SPIROMETER ON BEDSIDE TABLE. PATIENT VERBALIZED FREQUENCY OF PERFORMING INCENTIVE SPIROMETER. PATIENT RETURN DEMONSTRATED PROPER FOOT FLEXION/EXTENSION EXERCISES. ICE PACK TO R HIP . SHARON DRESSING INTACT AND FUNCTIONING. SHARON DRESSING INSTRUCTION SHEET PROVIDED AND REVIEWED. FAMILY AT BEDSIDE. PATIENT HAD L HIP REPLACEMENT IN JUNE OF 2024. PAIN EXPECTATIONS REALISTIC. REMINDED THAT PAIN MEDICATION MUST BE REQUESTED. ENCOURAGED PATIENT TO SET A FOUR HOUR TIMER ON CELL PHONE AND DO A PAIN CHECK. PATIENT VERBALIZED UNDERSTANDING. ENCOURAGED PATIENT TO SHOWER TOMORROW, RATIONALE PROVIDED. PATIENT VERBALIZED UNDERSTANDING. NO ADDITIONAL QUESTIONS/CONCERNS AT THIS TIME.
[2024-11-17] MEDS: ceFAZolin SODIUM 2 GM VIAL IVPB SCH (16:48)
--- NOTE | 2024-11-17 17:55 | NUR ---
During PT EVAL patient verbalized that she struggles with bladder incontinence. During transfer patient voided a large amount of urie on floor resulting in near fall as patient stepped in urine and attempted to clean self. Pt assisted back to bed,wiped down and changed. Floor cleaned. Pt reports that she voids several times each night and that she is not able to hold bladder, but also does not want a brief. Requested purewik. Nurse informed me that they have been instructed to encourage ambulation / toileting for ortho patients as opposed to purewick. I explained to her that patient is now requesting and voiced multiple voids per night and incontinence. Also described near fall with 2x PT staff. Nurse aware and will discuss with patient.
[2024-11-17] MEDS ORDERED: NON-FORMULARY MEDICATION 1 EACH (Famotidine 40 MG) PO SCH (21:00)
[2024-11-17] MEDS ORDERED: NON-FORMULARY MEDICATION 1 EACH (Lovastatin 20 MG) PO SCH (21:00)
[2024-11-17] MEDS: ASPIRIN 81 MG EC TAB PO SCH (21:33)
[2024-11-17] MEDS: FAMOTIDINE 20MG TAB PO SCH (21:33)
[2024-11-17] MEDS: CeleCOXib 200 MG CAP PO SCH (21:33)
[2024-11-17] MEDS: LATANOPROST 2.5 ML DROPS OP SCH (21:34)
[2024-11-17] MEDS: atorVAStatin 10 MG TABLET PO SCH (21:34)
[2024-11-18 04:00] VITALS: BP 139/72; PULSE 84; RESP 19; TEMP 97.8
[2024-11-18] MEDS: traMADol HCL 50 MG TABLET PO PRN (04:06)
[2024-11-18 05:01] LABS: MEAN CORPUSCULAR VOLUME 87.9 fL (79-99); RED BLOOD CELL COUNT(AUTO) 3.07 MIL/uL (4.00-5.50); RED CELL DISTRIBUTION WIDTH 15.4 % (11.0-15.5); WHITE BLOOD COUNT (AUTO) 10.6 K/uL (4.8-10.8)
[2024-11-18 05:17] LABS: CREATININE 0.8 mg/dL (0.5-1.0)
[2024-11-18] MEDS: levoTHYROxine 50 MCG TABLET PO SCH (06:16)
[2024-11-18] MEDS: metFORmin HCL 500 MG TABLET PO SCH (06:17)
[2024-11-18] MEDS: levoTHYROxine 50 MCG TABLET ONE (06:17)
[2024-11-18 08:14] VITALS: BP 122/67; PULSE 77; RESP 19; TEMP 97.9
[2024-11-18] MEDS: polyETHYLene GLYCol 3350 17 GM POWD.PACK PO SCH (08:46)
[2024-11-18] MEDS: amLODIPine 5 MG TAB PO SCH (08:46)
[2024-11-18] MEDS: LoSARTan 100 MG TABLET PO SCH (08:46)
[2024-11-18] MEDS: FERROUS SULFATE 325 MG TABLET.DR PO SCH (08:46)
[2024-11-18] MEDS ORDERED: NON-FORMULARY MEDICATION 1 EACH (Ferrous Sulfate (Iron) 325 MG) PO SCH (09:00)
--- NOTE | 2024-11-18 10:51 | NUR ---
DC PLAN VISITED WITH PATIENT AND FAMILY. PATIENT LIVES ALONE. INDEPENDENT ABLE TO PERFORM ADL'S. SAID WALKER AVAILABLE FOR USE. NO OTHER SERVICES OR DME'S. FEELS SAFE TO RETURN HOME. [facility] SIGNED FOR [facility]. PACKET MADE AND SENT. Addendum: 11/18/24 at 1057 by CECE AGUIAR RN CM Amended: Links added.
[2024-11-18 12:00] VITALS: BP 132/81; PULSE 81; RESP 19; TEMP 97.9
--- NOTE | 2024-11-18 13:23 | PN ---
POD # 1 S/P R ROMEL VSS, afebrile. Lab reviewed, lower H/H Adequate pain control Awake, alert and oriented Dressing intact Distal NV intact Mild edema. Distal NV exam intact. A: S/P R ROMEL P: Continue post-op PT Dismiss in AM if cleared. Vitals/Labs Vital Signs Date Time Temp Pulse Resp B/P (MAP) Pulse Ox O2 Delivery O2 Flow Rate FiO2 11/18/24 12:00 97.9 81 19 132/81 100 Room Air 11/18/24 09:52 0 21 Laboratory Tests 11/18/24 04:32 Medications Current Medications Vancomycin HCl 100 ml @ As Directed STK-MED ONCE IV; Start 11/17/24 at 06:31; Stop 11/17/24 at 06:31; Status DC Cefazolin Sodium 1 gm STK-MED ONCE .ROUTE Last administered on 11/17/24at 08:51; Start 11/17/24 at 06:39; Stop 11/17/24 at 06:39; Status DC Cefazolin Sodium 2 gm STK-MED ONCE .ROUTE Last administered on 11/17/24at 08:15; Start 11/17/24 at 07:01; Stop 11/17/24 at 07:01; Status DC Sodium Chloride 1,000 ml @ As Directed STK-MED ONCE IV Last administered on 11/17/24at 07:22; Start 11/17/24 at 07:01; Stop 11/17/24 at 07:01; Status DC Acetaminophen 100 ml @ As Directed STK-MED ONCE .ROUTE; Start 11/17/24 at 07:06; Stop 11/17/24 at 07:07; Status DC Famotidine 20 mg STK-MED ONCE IV; Start 11/17/24 at 07:06; Stop 11/17/24 at 07:07; Status DC Ropivacaine 150 mg STK-MED ONCE .ROUTE; Start 11/17/24 at 07:08; Stop 11/17/24 at 07:08; Status DC Ketamine HCl 50 mg STK-MED ONCE .ROUTE; Start 11/17/24 at 07:09; Stop 11/17/24 at 07:09; Status DC Lidocaine HCl 100 mg STK-MED ONCE .ROUTE; Start 11/17/24 at 07:12; Stop 11/17/24 at 07:13; Status DC Propofol 200 mg STK-MED ONCE IV; Start 11/17/24 at 07:13; Stop 11/17/24 at 07:13; Status DC Rocuronium [place] 50 mg STK-MED ONCE .ROUTE; Start 11/17/24 at 07:13; Stop 11/17/24 at 07:13; Status DC Fentanyl Citrate 100 mcg STK-MED ONCE .ROUTE; Start 11/17/24 at 07:13; Stop 11/17/24 at 07:13; Status DC Tranexamic Acid 1,000 mg STK-MED ONCE .ROUTE Last administered on 11/17/24at 08:10; Start 11/17/24 at 07:44; Stop 11/17/24 at 07:44; Status DC Ondansetron HCl 4 mg STK-MED ONCE .ROUTE; Start 11/17/24 at 08:08; Stop 11/17/24 at 08:08; Status DC Dexamethasone Sodium Phosphate 10 mg STK-MED ONCE .ROUTE; Start 11/17/24 at 08:08; Stop 11/17/24 at 08:08; Status DC Glycopyrrolate 1 mg STK-MED ONCE .ROUTE; Start 11/17/24 at 09:11; Stop 11/17/24 at 09:12; Status DC Neostigmine Methylsulfate 10 mg STK-MED ONCE IV; Start 11/17/24 at 09:12; Stop 11/17/24 at 09:12; Status DC Phenylephrine HCl 10 mg STK-MED ONCE IV; Start 11/17/24 at 09:12; Stop 11/17/24 at 09:12; Status DC Sodium Chloride 1,000 ml @ 100 mls/hr Q10H IV Last administered on 11/17/24at 13:24; Start 11/17/24 at 10:30; Stop 11/18/24 at 10:29; Status DC Polyethylene Glycol 17 gm DAILY PO Last administered on 11/18/24at 08:46; Start 11/18/24 at 09:00; Stop 12/18/24 at 08:59 Bisacodyl 10 mg DAILY PRN RC; Start 11/20/24 at 10:30; Stop 12/20/24 at 10:29 Ketorolac Tromethamine 15 mg Q6H PRN IV Last administered on 11/17/24at 13:16; Start 11/17/24 at 10:30; Stop 11/22/24 at 10:29 Famotidine 20 mg BID PO Last administered on 11/18/24at 08:46; Start 11/17/24 at 21:00; Stop 12/17/24 at 20:59 Ferrous Fumarate 324 mg DAILY PRN PO; Start 11/17/24 at 10:30; Stop 12/17/24 at 10:29 Calcium Carbonate 500 mg Q12H PRN PO; Start 11/17/24 at 10:30; Stop 12/17/24 at 10:29 Insulin Human Regular INSULIN SLIDING SCAL... ACHS SQ; Start 11/17/24 at 11:30; Stop 12/17/24 at 11:29 Ondansetron HCl 4 mg Q6H PRN IVP; Start 11/17/24 at 10:30; Stop 12/17/24 at 10:29 Cefazolin Sodium 2 gm Q8H IVPB Last administered on 11/17/24at 23:00; Start 11/17/24 at 15:30; Stop 11/17/24 at 23:31; Status DC Potassium Chloride 100 ml @ 100 mls/hr AD PRN IV; Start 11/17/24 at 10:30; Stop 12/17/24 at 10:29 Potassium Chloride 20 meq AD PRN PO; Start 11/17/24 at 10:30; Stop 12/17/24 at 10:29 Potassium Chloride 20 meq AD PRN PO; Start 11/17/24 at 10:30; Stop 12/17/24 at 10:29 Celecoxib 200 mg BID PO Last administered on 11/18/24at 08:46; Start 11/17/24 at 21:00; Stop 12/17/24 at 20:59 Oxycodone HCl 5 mg Q4H PRN PO; Start 11/17/24 at 10:30; Stop 11/24/24 at 10:29 Oxycodone HCl 10 mg Q4H PRN PO; Start 11/17/24 at 10:30; Stop 11/24/24 at 10:29 Tramadol HCl 50 mg Q6H PRN PO Last administered on 11/18/24at 04:06; Start 11/17/24 at 10:30; Stop 11/22/24 at 10:29 Acetaminophen 1,000 mg Q8H PO Last administered on 11/18/24at 11:05; Start 11/17/24 at 10:30; Stop 12/17/24 at 10:29 Aspirin 81 mg BID PO Last administered on 11/18/24at 08:46; Start 11/17/24 at 21:00; Stop 12/17/24 at 20:59 Tranexamic Acid 1,000 mg STK-MED ONCE .ROUTE Last administered on 11/17/24at 10:47; Start 11/17/24 at 10:31; Stop 11/17/24 at 10:31; Status DC Hydromorphone HCl 1 mg STK-MED ONCE .ROUTE Last administered on 11/17/24at 11:08; Start 11/17/24 at 11:03; Stop 11/17/24 at 11:04; Status DC Amlodipine Besylate 5 mg AM PO Last administered on 11/18/24at 08:46; Start 11/18/24 at 09:00; Stop 12/18/24 at 08:59 Latanoprost 1 drop HS OP Last administered on 11/17/24at 21:34; Start 11/17/24 at 21:00; Stop 12/17/24 at 20:59 Levothyroxine Sodium 50 mcg ACBKFST PO Last administered on 11/18/24at 06:16; Start 11/18/24 at 07:30; Stop 11/18/24 at 07:15; Status DC Losartan Potassium 100 mg DAILY PO Last administered on 11/18/24at 08:46; Start 11/18/24 at 09:00; Stop 12/18/24 at 08:59 Metformin HCl 500 mg BIDAC PO Last administered on 11/18/24at 06:17; Start 11/18/24 at 07:30; Stop 12/18/24 at 07:29 Miscellaneous Medication 40 mg BID PO; Start 11/17/24 at 21:00; Stop 11/17/24 at 17:08; Status DC Miscellaneous Medication 325 mg DAILY PO; Start 11/18/24 at 09:00; Stop 11/17/24 at 17:11; Status DC Home Med Benefiber BID PO; Start 11/17/24 at 21:00; Stop 12/17/24 at 20:59 Miscellaneous Medication 20 mg HS PO; Start 11/17/24 at 21:00; Stop 11/17/24 at 17:12; Status DC Ferrous Sulfate 325 mg DAILY PO Last administered on 11/18/24at 08:46; Start 11/18/24 at 09:00; Stop 12/18/24 at 08:59 Atorvastatin Calcium 5 mg HS PO Last administered on 11/17/24at 21:34; Start 11/17/24 at 21:00; Stop 12/17/24 at 20:59 Levothyroxine Sodium 50 mcg STK-MED ONCE .ROUTE; Start 11/18/24 at 06:15; Stop 11/18/24 at 06:15; Status DC Levothyroxine Sodium 50 mcg SYN PO; Start 11/19/24 at 06:30; Stop 12/18/24 at 07:29 NASRIN ALMONTE MD Nov 18, 2024 13:23
[2024-11-18] MEDS: CYCLOBENZAPRINE HCL 10 MG TABLET PO PRN (14:22)
--- NOTE | 2024-11-18 15:08 | NUR ---
DC PLAN CALLED [facility] ANSWERING SERVICES ANSWERED. SAID OFFICE CLOSED DUE TO [facility] WILL NOT BE OPEN TILL THURSDAY. MAULIK SENT MESSAGE ON TEAMS AND LET NURSE KNOW. Addendum: 11/18/24 at 1509 by CECE AGUIAR RN CM Amended: Links added.
[2024-11-18 16:00] VITALS: BP 119/59; PULSE 78; RESP 19; TEMP 98
--- NOTE | 2024-11-18 17:05 | NUR ---
NM PLAN [facility] IS CLOSED TILL THURSDAY DUE TO HOLIDAY. MAULIK LET DR. ALMONTE KNOW SAID OKAY NO NEW ORDERS RECEIVED. Addendum: 11/18/24 at 1715 by CECE AGUIAR RN CM Amended: Links added.
[2024-11-18 20:00] VITALS: BP 125/58; PULSE 79; RESP 18; TEMP 98.3; O2SAT 0
[2024-11-19] VITALS: BP 138/64; PULSE 67; RESP 18; TEMP 97.6
[2024-11-19 04:00] VITALS: BP 140/65; PULSE 69; RESP 18; TEMP 97.5
[2024-11-19] MEDS: levoTHYROxine 50 MCG TABLET PO SCH (06:16)
[2024-11-19 08:13] VITALS: BP 149/71; PULSE 82; RESP 19; TEMP 98
[2024-11-19 12:00] VITALS: BP 135/68; PULSE 74; RESP 19; TEMP 98
--- NOTE | 2024-11-19 12:14 | PN ---
Stop day 2. Vital signs stable, afebrile. Patient doing well in reference to pain and physical therapy, ambulating adequately with the use of the walker. Pain in the adequate control. Awake, alert and oriented and in good spirits. Wound stable, distal neurovascular exam normal. Assessment: Status post total hip arthroplasty. Plan: The patient is ready to go up but the home health agency is closed over the weekend because of the and will not open until Thursday so we will discharge her on that day. Vitals/Labs Vital Signs Date Time Temp Pulse Resp B/P (MAP) Pulse Ox O2 Delivery O2 Flow Rate FiO2 11/19/24 08:13 98.1 82 19 149/71 97 Room Air 11/19/24 07:46 0 21 Medications Current Medications Vancomycin HCl 100 ml @ As Directed STK-MED ONCE IV; Start 11/17/24 at 06:31; Stop 11/17/24 at 06:31; Status DC Cefazolin Sodium 1 gm STK-MED ONCE .ROUTE Last administered on 11/17/24at 08:51; Start 11/17/24 at 06:39; Stop 11/17/24 at 06:39; Status DC Cefazolin Sodium 2 gm STK-MED ONCE .ROUTE Last administered on 11/17/24at 08:15; Start 11/17/24 at 07:01; Stop 11/17/24 at 07:01; Status DC Sodium Chloride 1,000 ml @ As Directed STK-MED ONCE IV Last administered on at 07:22; Start 11/17/24 at 07:01; Stop 11/17/24 at 07:01; Status DC Acetaminophen 100 ml @ As Directed STK-MED ONCE .ROUTE; Start 11/17/24 at 07:06; Stop 11/17/24 at 07:07; Status DC Famotidine 20 mg STK-MED ONCE IV; Start 11/17/24 at 07:06; Stop 11/17/24 at 07:07; Status DC Ropivacaine 150 mg STK-MED ONCE .ROUTE; Start 11/17/24 at 07:08; Stop 11/17/24 at 07:08; Status DC Ketamine HCl 50 mg STK-MED ONCE .ROUTE; Start 11/17/24 at 07:09; Stop 11/17/24 at 07:09; Status DC Lidocaine HCl 100 mg STK-MED ONCE .ROUTE; Start 11/17/24 at 07:12; Stop 11/17/24 at 07:13; Status DC Propofol 200 mg STK-MED ONCE IV; Start 11/17/24 at 07:13; Stop 11/17/24 at 07:13; Status DC Rocuronium [place] 50 mg STK-MED ONCE .ROUTE; Start 11/17/24 at 07:13; Stop 11/17/24 at 07:13; Status DC Fentanyl Citrate 100 mcg STK-MED ONCE .ROUTE; Start 11/17/24 at 07:13; Stop 11/17/24 at 07:13; Status DC Tranexamic Acid 1,000 mg STK-MED ONCE .ROUTE Last administered on 11/17/24at 08:10; Start 11/17/24 at 07:44; Stop 11/17/24 at 07:44; Status DC Ondansetron HCl 4 mg STK-MED ONCE .ROUTE; Start 11/17/24 at 08:08; Stop 11/17/24 at 08:08; Status DC Dexamethasone Sodium Phosphate 10 mg STK-MED ONCE .ROUTE; Start 11/17/24 at 08:08; Stop 11/17/24 at 08:08; Status DC Glycopyrrolate 1 mg STK-MED ONCE .ROUTE; Start 11/17/24 at 09:11; Stop 11/17/24 at 09:12; Status DC Neostigmine Methylsulfate 10 mg STK-MED ONCE IV; Start 11/17/24 at 09:12; Stop 11/17/24 at 09:12; Status DC Phenylephrine HCl 10 mg STK-MED ONCE IV; Start 11/17/24 at 09:12; Stop 11/17/24 at 09:12; Status DC Sodium Chloride 1,000 ml @ 100 mls/hr Q10H IV Last administered on 11/17/24at 13:24; Start 11/17/24 at 10:30; Stop 11/18/24 at 10:29; Status DC Polyethylene Glycol 17 gm DAILY PO Last administered on 11/19/24at 08:33; Start 11/18/24 at 09:00; Stop 12/18/24 at 08:59 Bisacodyl 10 mg DAILY PRN RC; Start 11/20/24 at 10:30; Stop 12/20/24 at 10:29 Ketorolac Tromethamine 15 mg Q6H PRN IV Last administered on 11/17/24at 13:16; Start 11/17/24 at 10:30; Stop 11/22/24 at 10:29 Famotidine 20 mg BID PO Last administered on 11/19/24at 08:33; Start 11/17/24 at 21:00; Stop 12/17/24 at 20:59 Ferrous Fumarate 324 mg DAILY PRN PO; Start 11/17/24 at 10:30; Stop 12/17/24 at 10:29 Calcium Carbonate 500 mg Q12H PRN PO; Start 11/17/24 at 10:30; Stop 12/17/24 at 10:29 Insulin Human Regular INSULIN SLIDING SCAL... ACHS SQ; Start 11/17/24 at 11:30; Stop 12/17/24 at 11:29 Ondansetron HCl 4 mg Q6H PRN IVP; Start 11/17/24 at 10:30; Stop 12/17/24 at 10:29 Cefazolin Sodium 2 gm Q8H IVPB Last administered on 11/17/24at 23:00; Start 11/17/24 at 15:30; Stop 11/17/24 at 23:31; Status DC Potassium Chloride 100 ml @ 100 mls/hr AD PRN IV; Start 11/17/24 at 10:30; Stop 12/17/24 at 10:29 Potassium Chloride 20 meq AD PRN PO; Start 11/17/24 at 10:30; Stop 12/17/24 at 10:29 Potassium Chloride 20 meq AD PRN PO; Start 11/17/24 at 10:30; Stop 12/17/24 at 10:29 Celecoxib 200 mg BID PO Last administered on 11/19/24at 08:33; Start 11/17/24 at 21:00; Stop 12/17/24 at 20:59 Oxycodone HCl 5 mg Q4H PRN PO; Start 11/17/24 at 10:30; Stop 11/24/24 at 10:29 Oxycodone HCl 10 mg Q4H PRN PO; Start 11/17/24 at 10:30; Stop 11/24/24 at 10:29 Tramadol HCl 50 mg Q6H PRN PO Last administered on 11/18/24at 04:06; Start 11/17/24 at 10:30; Stop 11/22/24 at 10:29 Acetaminophen 1,000 mg Q8H PO Last administered on 11/19/24at 09:38; Start 11/17/24 at 10:30; Stop 12/17/24 at 10:29 Aspirin 81 mg BID PO Last administered on 11/19/24at 08:33; Start 11/17/24 at 21:00; Stop 12/17/24 at 20:59 Tranexamic Acid 1,000 mg STK-MED ONCE .ROUTE Last administered on 11/17/24at 10:47; Start 11/17/24 at 10:31; Stop 11/17/24 at 10:31; Status DC Hydromorphone HCl 1 mg STK-MED ONCE .ROUTE Last administered on 11/17/24at 11:08; Start 11/17/24 at 11:03; Stop 11/17/24 at 11:04; Status DC Amlodipine Besylate 5 mg AM PO Last administered on 11/19/24at 08:33; Start 11/18/24 at 09:00; Stop 12/18/24 at 08:59 Latanoprost 1 drop HS OP Last administered on 11/18/24at 21:29; Start 11/17/24 at 21:00; Stop 12/17/24 at 20:59 Levothyroxine Sodium 50 mcg ACBKFST PO Last administered on 11/18/24at 06:16; Start 11/18/24 at 07:30; Stop 11/18/24 at 07:15; Status DC Losartan Potassium 100 mg DAILY PO Last administered on 11/19/24at 08:33; Start 11/18/24 at 09:00; Stop 12/18/24 at 08:59 Metformin HCl 500 mg BIDAC PO Last administered on 11/19/24at 08:33; Start 11/18/24 at 07:30; Stop 12/18/24 at 07:29 Miscellaneous Medication 40 mg BID PO; Start 11/17/24 at 21:00; Stop 11/17/24 at 17:08; Status DC Miscellaneous Medication 325 mg DAILY PO; Start 11/18/24 at 09:00; Stop 11/17/24 at 17:11; Status DC Home Med Benefiber BID PO; Start 11/17/24 at 21:00; Stop 12/17/24 at 20:59 Miscellaneous Medication 20 mg HS PO; Start 11/17/24 at 21:00; Stop 11/17/24 at 17:12; Status DC Ferrous Sulfate 325 mg DAILY PO Last administered on 11/19/24at 08:33; Start 11/18/24 at 09:00; Stop 12/18/24 at 08:59 Atorvastatin Calcium 5 mg HS PO Last administered on 11/18/24at 21:27; Start 11/17/24 at 21:00; Stop 12/17/24 at 20:59 Levothyroxine Sodium 50 mcg STK-MED ONCE .ROUTE; Start 11/18/24 at 06:15; Stop 11/18/24 at 06:15; Status DC Levothyroxine Sodium 50 mcg SYN PO Last administered on 11/19/24at 06:16; Start 11/19/24 at 06:30; Stop 12/18/24 at 07:29 Cyclobenzaprine HCl 5 mg Q6H6 PRN PO Last administered on 11/18/24at 14:22; Start 11/18/24 at 13:30; Stop 12/18/24 at 13:29 NASRIN ALMONTE MD Nov 19, 2024 12:14
[2024-11-19 16:00] VITALS: BP 100/53; PULSE 73; RESP 19; TEMP 97.6
[2024-11-19 20:00] VITALS: BP 127/62; PULSE 79; RESP 18; TEMP 98; O2SAT 0
[2024-11-19] MEDS: LATANOPROST 2.5 ML DROPS OP SCH (21:10)
[2024-11-20] VITALS: BP 137/70; PULSE 75; RESP 18; TEMP 97.6
[2024-11-20 04:00] VITALS: BP 132/67; PULSE 66; RESP 18; TEMP 97.8
[2024-11-20 07:05] VITALS: BP 151/72; PULSE 72; RESP 20; TEMP 97.8
[2024-11-20 09:36] VITALS: TEMP 97.9
[2024-11-20 10:24] VITALS: O2SAT 100
[2024-11-20] MEDS ORDERED: BisaCODYL 10 MG SUPP.RECT RC PRN (10:30)
[2024-11-20 11:53] VITALS: BP 125/65; PULSE 75; RESP 20; TEMP 98
[2024-11-20] MEDS ORDERED: AEC81 PO (12:02)
[2024-11-20] MEDS ORDERED: HYDR-4060 PO (12:02)
--- NOTE | 2024-11-20 12:24 | DS ---
DISCHARGE SUMMARY [Date of admission: 11/17/24 Date of discharge: 11/20/24 Final diagnosis: Right hip osteoarthritis Surgical procedures: Right total hip arthroplasty on 11/17/24 Summary of History and Physical: The patient is an 79 year-old female with history of severe arthrosis to the right hip that has been present for several years and has been treated conservatively with no longer adequate response to treatment. The patient is being admitted for total hip arthroplasty. Previous medical history: NIDDM, HTN, Hyperlipidemia, Hypothyroidism Previous surgical history: Left ROMEL Total hysterectomy,bilateral breast biopsy, partial thyroid resection Family history: HTN, DM, Hupothyroidism, heart disease. Kidney, lung and brain cancer. Social history: Negative for use of tobacco or alcohol. Allergies: NKDA. Review of system: Negative on admission Hospital course: The patient was admitted and taken to the operating room for a total hip arthroplasty, procedure that went uneventful. Postoperatively the patient remained hemodynamically stable and afebrile. The patient received antibiotic and anticoagulation prophylaxis as per protocol. The patient was evaluated by physical therapy and started rehabilitation treatment with ambulation with the use of walker, weightbearing as tolerated, hip precautions, range of motion exercises and bed transfers. The patient was also evaluated by case management and arrangements were made for discharge . The patient tolerated diet well. On postop day #3 the patient was dismissed home after PT and final arrangements will be completed by case management tomorrow morning. Condition on discharge: Good Disposition: The patient will be dismissed home with home health. Follow-up will be done at the office in 3 weeks. The patient is to continue with physical therapy and rehabilitation at home and be ambulatory with the use of a walker, weightbearing as tolerated and continue with hip precautions. Continue taking pain medication as instructed as well as anticoagulation prophylaxis. Dressing will be removed on POD #7 or 8. Patient was instructed about dressing care and removal. Continue with home medications also as instructed and continue with pre-admission diet. NASRIN ALMONTE MD] NASRIN ALMONTE MD Nov 20, 2024 12:24
--- NOTE | 2024-11-20 14:15 | NUR ---
Discharge instructions given and explained to the patient The PIV is removed. All belongings are packed by her family. She is then taken downstairs in a wheelchair and departed in a private vehicle.
--- NOTE | 2024-11-20 15:38 | NUR ---
ID PLAN CM SPOKE TO DIRECTOR REGARDING [facility] CLOSED SINCE THURSDAY DUE TO HOLIDAY. AT THIS POINT PATIENT WALKING 150FT. DIRECTOR ASKED FOR TO ASK DR. ALMONTE IF WOULD BE OKAY TO ID AND CM WILL FOLLOW UP WITH [facility] TOMORROW TO CONFIRM ACCEPTED. LET DR. ALMONTE KNOW SAID WOULD BE OKAY. MAULIK SPOKE TO NURSE OF UPDATED PLAN. Addendum: 11/20/24 at 1549 by CECE AGUIAR RN CM Amended: Links added.
== END 2024-11-20 14:00 | disposition home or self-care (01) ==
LOC: DAH 06:20 → DAHIP 06:21 → DAH 06:21 → 4DH 11:55
PROVIDERS: ADMIT Orthopaedic Surgery; ATTEND Orthopaedic Surgery
DX: M16.11 Unilateral primary osteoarthritis, right hip (principal); G89.18 Other acute postprocedural pain; E03.9 Hypothyroidism, unspecified; E11.9 Type 2 diabetes mellitus without complications; E78.5 Hyperlipidemia, unspecified; I10 Essential (primary) hypertension; Z79.84 Long term (current) use of oral hypoglycemic drugs; Z96.642 Presence of left artificial hip joint; Z90.710 Acquired absence of both cervix and uterus; Z86.2 Personal history of diseases of the blood and blood-forming organs and certain disorders involving the immune mechanism
CPT/HCPCS: 80048 ×2; 85025; 85610; 85730; 87086; 81003; 36415 ×2; 93005; 87641; 27130; 96365; 96366; 96375; 64447; 82948 ×14; 73503; 97161; 97116 ×7; 97530 ×8; 85027; G0378 ×70; A4663; J3490 ×6; J3010; J0690 ×4; J1171; J1100; J7030; J2003; J2704; J2405; J2710; J2795; J1885; J2371; J3370; J1815; A4649 ×2; A9272; A4930 ×3; C1776; A5120; A4215; A4223 ×2; A4222; A4221